=== PATIENT | male | born 1990 | race Caucasian/White ===

== ENCOUNTER 2019-04-05 03:29 | Emergency (ER) | payer SELFPAY ==
[~2019-04-05] VITALS: Ht 170.2 cm; Wt 56.7 kg
[2019-04-05] MEDS ORDERED: MIDAZOLAM HCL 5 MG/5ML VIAL ONE (03:45)
[2019-04-05] MEDS ORDERED: HALOPERIDOL LACTATE INJ 5 MG/ML VIAL ONE (03:48)
--- NOTE | 2019-04-05 03:55 | NUR ---
PT CAME TO ER BIB [employer]ERS FOR SUICIDAL IDEATION. PT HAD BEEN APPROACHED BY [employer] OFF[employer] WHEN HE DISPLAYED AGGRESSIVE BEHAVIOR BY BITING AND SWINGING, PER [employer] REPORT. PT HAS A GENDER PREFERENCE OF BEING FEMALE. PT IS RUDE TOWARDS STAFF AND UNWILLING TO COOPERATE. AAOX3. PT IS SCREAMING AND CURSING AT STAFF ALONG WITH BIZARRE BEHAVIOR.
[2019-04-05] MEDS ORDERED: HALOPERIDOL LACTATE INJ 5 MG/ML VIAL IV ONE (04:00)
[2019-04-05] MEDS ORDERED: MIDAZOLAM HCL 2 MG/2ML VIAL IM ONE (04:00)
--- NOTE | 2019-04-05 04:20 | NUR ---
PHLEB AT BEDSIDE FOR BLOOD DRAW
[2019-04-05] MEDS ORDERED: HALOPERIDOL LACTATE INJ 5 MG/ML VIAL IM ONE (04:30)
[2019-04-05 04:36] LABS: BASOPHILS % (AUTO) 0.3 % (0.0-2.0); EOSINOPHILS % (AUTO) 0.4 % (0.0-6.0); HEMATOCRIT 41 % (39-51); HEMOGLOBIN 13.9 g/dL (13.5-17.5); LYMPHOCYTES # (AUTO) 0.9 /CMM (0.8-4.8); LYMPHOCYTES % (AUTO) 10.3 % (20.0-44.0); MEAN CORPUSCULAR HGB CONC 34 g/dl (31.0-36.0); MEAN CORPUSCULAR VOLUME 88 fL (80-96); MONOCYTES # (AUTO) 0.6 /CMM (0.1-1.30); MONOCYTES % (AUTO) 6.4 % (2.0-12.0); NEUTROPHILS # (AUTO) 7.4 /CMM (1.8-8.9); NEUTROPHILS % (AUTO) 82.6 % (43.0-81.0); PLATELET COUNT (AUTO) 248 /CMM (150-450); RED BLOOD CELL COUNT(AUTO) 4.64 MIL/uL (4.5-6.0)
[2019-04-05 04:39] LABS: CALCIUM, SERUM 9.4 mg/dL (8.5-10.1); CARBON DIOXIDE 27 mmol/L (21-32); CHLORIDE 105 mmol/L (98-107); CREATININE 1.2 mg/dL (0.6-1.3); GLUCOSE 96 mg/dL (74-106); POTASSIUM 3.8 mmol/L (3.5-5.1); SODIUM SERUM 141 mmol/L (136-145); UREA NITROGEN, BLOOD 15 mg/dL (7-18)
[2019-04-05 04:44] LABS: ALANINE AMINOTRANSFERASE 29 U/L (12-78); ALBUMIN 3.7 g/dL (3.4-5.0); ALCOHOL, BLOOD < 3 mg/dL (0-0); ALKALINE PHOSPHATASE 80 U/L (46-116); ASPARTATE AMINOTRANSFERASE 21 U/L (15-37); BILIRUBIN,DIRECT 0.1 mg/dL (0.0-0.2); BILIRUBIN,TOTAL 0.3 mg/dL (0.2-1.0)
[2019-04-05 04:54] LABS: ACETAMINOPHEN 0 ug/ml (10-30); SALICYLATE 0.2 mg/dL (2.8-20.0)
[2019-04-05] MEDS ORDERED: LIDOCAINE 2% JEL UROJET 10 ML MM ONE (05:14)
--- NOTE | 2019-04-05 05:24 | NUR ---
URINE COLLECTED AND SENT TO LAB
[2019-04-05 05:33] LABS: APPEARANCE,URINE Clear (CLEAR); BILIRUBIN,URINE Negative (NEGATIVE); BLOOD, URINE Negative Ery/uL (NEGATIVE); COLOR,URINE Yellow (YELLOW); KETONES,URINE Negative (NEGATIVE); LEUKOCYTE ESTERASE ,URINE Negative (NEGATIVE); NITRITE, URINE Negative (NEGATIVE); PH,URINE 6.5 (5.0-8.0); PROTEIN,URINE Negative (NEGATIVE); UGLUCOSE Negative (NEGATIVE); UROBILINOGEN,URINE 0.2 EU/dL (0.2)
--- NOTE | 2019-04-05 08:37 | NUR ---
BREAKLFAST TRAY PROVIDED. PATIENT TOLERATING PO WELL.
--- NOTE | 2019-04-05 09:30 | NUR ---
Dr Morris called for evaluation of this 28 year old transgender female who is called "Zoe". [facility] and conference services coordinator digital account supervisor/ senior statistical programmer Dr. Zoila Pillai met with the pt. her brother Byron and friend Heri bedside. Pt. is alert and oriented x4 with no evidence of any psychotic symptoms. Pt. was placed on a 5150 hold by [employer] after her friend Heri called the police, due to attacking him at [facility]. Heri did not press charges. Pt. is known to have anger control problems and had dealt with police several times in the past. Pt. moved from [place] a month ago and resides at an [facility] in [place] which is funded by Heri. Byron informed B[employer] POINTS INSPECTOR that pt. has been homeless for over a year in the [place] area. Pt. ex-coworker has a restraining order against the pt in [place]. Pt has no prior history of suicide attempts or mental health hospitalization. She has had no 5150 in the past per brother, Byron. Pt is dismissive when asked questions. 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 Per Dr. Pillai, pt's presentation is one of borderline personality disorder. She groups texts friends and threatens to kill herself periodically. Parents and friend, Heri, support her financially. Pt's mother is flying in from [place] today but she refuses to wait for her mother. She is not accepting any family support. Pt has a history of methamphetamine abuse and was looking for heroin the other day per Heri. Friends report that she been diagnosed with bipolar disorder, however per Dr. Pillai pt. presentation is that of borderline personality disorder. She is calm and wanting to leave. [employer] 5150 is not being upheld. Per Dr. Pillai, pt. is currently presenting no imminent danger to herself or others. [facility] provided active listening, emotional support and supportive counseling to the pt, his friend Heri and brother Byron. Pt. also provided both pt. and his brother Byron the following Mental health resources: [facility] (Behavioral Health) [address] [address] [facility], 2nd floor, [place] [phone] Main Number: ; [facility] ([facility]): Contact ; [facility] [address] [place] [address] ; [facility] (Behavioral Health) [place] [address] Pt. was provided with a TAP CARD. Pt. denies being homeless, however, Homeless Patient Waiver was signed by the pt. Pt left with brother Byron and friend Heri.
--- NOTE | 2019-04-05 10:51 | NUR ---
SCARLET SANABRIA LCSW, IS SPEAKING TO THE PT'S BROTHER AND FRIEND.
--- NOTE | 2019-04-05 10:52 | NUR ---
ASSUMED CARE OF PT FOR CHUY.
--- NOTE | 2019-04-05 11:40 | NUR ---
5150 was broken by Zoila Pillai LCSW. Pt rec'd a pair of shoes upon discharge. Patient discharged to home in stable condition. Written and verbal after care instructions given. Patient verbalizes understanding of instruction. Pt denied being homeless, but signed the Homeless waiver and rec'd a TAP card. Pt's friend and brother waited for pt to be discharged.
[2019-04-05 11:58] VITALS: BP 127/85
== END 2019-04-05 12:00 | disposition home or self-care (01) ==
LOC: EDBD 03:32 → ER 03:32
DX: R45.1 Restlessness and agitation (principal); F60.9 Personality disorder, unspecified; F13.10 Sedative, hypnotic or anxiolytic abuse, uncomplicated; F98.9 Unspecified behavioral and emotional disorders with onset usually occurring in childhood and adolescence
CPT/HCPCS: 36415; 80048; 80076; 80305; 80307; 80329; 81001; 85025; 96372; 99283; G0480; J1630; J2250; J3490; 81000-TC